=== PATIENT | female | born 1995 | race Caucasian/White ===

== ENCOUNTER → 2016-10-17 | Outpatient (CLI) | payer BC | LOC: RAD 18:58 | DX: M79.671 Pain in right foot (principal); S92.511A Displaced fracture of proximal phalanx of right lesser toe(s), initial encounter for closed fracture; X58.XXXA Exposure to other specified factors, initial encounter; M89.9 Disorder of bone, unspecified ==

== ENCOUNTER → 2020-06-25 | Outpatient (CLI) | payer OTHER, BC ==
[2020-05-11 12:46] VITALS: BP 116/72
[~2020-06-25] MED LIST: BACLOFEN5 MG PO
== END ==
LOC: RAD 09:41
DX: R91.8 Other nonspecific abnormal finding of lung field (principal); M43.8X4 Other specified deforming dorsopathies, thoracic region; Z87.81 Personal history of (healed) traumatic fracture
CPT/HCPCS: Q9967

== ENCOUNTER → 2020-06-30 | Outpatient (CLI) | payer OTHER, BC ==
[2020-05-11 12:46] VITALS: BP 116/72
== END ==
LOC: RAD 06:50
DX: M43.8X4 Other specified deforming dorsopathies, thoracic region (principal)

== ENCOUNTER 2020-08-20 09:54 | Outpatient (RCR) | payer BC ==
[2020-05-11 12:46] VITALS: BP 116/72
== END 2020-11-18 | disposition still patient (30) ==
LOC: PT
DX: M25.511 Pain in right shoulder (principal); Z98.890 Other specified postprocedural states

== ENCOUNTER 2020-11-20 09:57 | Outpatient (RCR) | payer BC | END 2021-02-18 | disposition home or self-care (01) | LOC: PT | DX: M25.511 Pain in right shoulder (principal); Z98.890 Other specified postprocedural states ==